=== PATIENT | female | born 1990 | race African-American/Black ===

== ENCOUNTER 2020-05-04 19:05 | Outpatient (CLI) | payer MEDICAID ==
[~2020-05-04] VITALS: Ht 175.3 cm; Wt 58.0 kg
[~2020-05-04 19:05] MED LIST: ACHYD1T PO; AMOX400S52; CIPR500T78 PO; DCS100C PO; DEPO PROVERA; HYDR-757 PO; HYDR118S; IBP800T PO; NITR-65 PO; PHEN200T27 PO; PRD20T PO; PREN-115 PO; RT-ALBUINH IH
--- NOTE | 2020-05-04 19:15 | NUR ---
SHIRA LUNDBERG presented to unit via ambulation from ED, accompanied by self , with c/o ABD PAIN FROM INJURY. SHIRA LUNDBERG weighed, gowned, voided, and to bed. EFHM and TOCO applied, VS taken. SHIRA LUNDBERG oriented to bed controls, call light, TV, heat, and A/C controls.
[2020-05-04 19:43] VITALS: BP 102/58
[2020-05-04 19:47] VITALS: BP 102/58
[2020-05-04 19:48] VITALS: BP 102/58
[2020-05-04 20:01] VITALS: BP 102/58
--- NOTE | 2020-05-04 20:03 | NUR ---
Pt discharged and educated on discharge instructions. No concerns at this time. Pt ambulated to private vehicle.
--- NOTE | 2020-05-07 08:20 | Physician Query-Final Dx ---
YINKA FITCH 05/07/20 0820: Clinic Account Progress/Dx Physician Query: Please give diagnosis Please include # weeks gestation Date of Service May 04, 2020 at 19:05 RAUL LEE MD 05/08/20 1710: Clinic Account Progress/Dx DIAGNOSIS: Diagnosis 25 weeks with false labor YINKA FITCH May 07, 2020 08:20 RAUL LEE MD May 08, 2020 17:10
== END 2020-05-04 20:01 | disposition home or self-care (01) ==
LOC: LDRP 19:05 → WSo 19:05
PROVIDERS: ATTEND Obstetrics & Gynecology
DX: Z34.92 Encounter for supervision of normal pregnancy, unspecified, second trimester (principal); Z3A.25 25 weeks gestation of pregnancy

== ENCOUNTER 2020-07-03 13:13 | Outpatient (CLI) | payer MEDICAID ==
--- NOTE | 2020-07-03 12:55 | NUR ---
SHIRA LUNDBERG presented to unit via W/C from ED, accompanied by AUNT, with c/o LEAKING FLUID. SHIRA LUNDBERG weighed, gowned, voided, and to bed. EFHM and TOCO applied, VS taken. SHIRA LUNDBERG oriented to bed controls, call light, TV, heat, and A/C controls.
[2020-07-03 13:20] VITALS: BP 91/54
--- NOTE | 2020-07-03 13:26 | NUR ---
DR. LEE NOTIFIED OF PT'S ARRIVAL, C/O, GESTATION, , AMNIO NEG, SVE, REVIEW OF STRIP, URINE PENDING. ORDERS RECEIVED TO GIVE REASSURANCE AND DISCHARGE HOME.
[2020-07-03] MEDS ORDERED: PREN-37 PO (13:29)
[2020-07-03] MEDS ORDERED: DIPH25CA79 PO (13:30)
--- NOTE | 2020-07-03 13:31 | NUR ---
REFER TO LABOR FLOW SHEET.
--- NOTE | 2020-07-03 13:35 | NUR ---
DISCHARGE PAPERS PROVIDED AND REVIEWED WITH PT AND PT'S AUNT. PT VERBALIZES UNDERSTANDING AND DENIES ANY QUESTIONS AT THIS TIME. PAPER SIGNED.
--- NOTE | 2020-07-03 13:39 | NUR ---
PT DISCHARGED FROM -[facility] TO PERSONAL AUTO VIA AMBULATORY IN STABLE CONDITION ACC BY PT'S AUNT.
[2020-07-03 13:56] LABS: BILIRUBIN,URINE NEGATIVE (NEGATIVE); CLARITY,URINE CLEAR; COLOR,URINE YELLOW; GLUCOSE, URINE (UA) NEGATIVE (NEGATIVE); KETONES,URINE NEGATIVE (NEGATIVE); LEUKOCYTE ESTERASE ,URINE NEGATIVE (NEGATIVE); NITRITE,URINE NEGATIVE (NEGATIVE); PROTEIN,URINE NEGATIVE (NEGATIVE)
[2020-07-03 14:03] LABS: BACTERIA,URINE FEW /HPF; WBC,URINE 0-2 /HPF
[2020-07-03 14:04] LABS: AMORPHOUS SEDIMENT,UR LARGE AMOR URATES /LPF
== END 2020-07-03 13:39 | disposition home or self-care (01) ==
LOC: WSo 13:13 → LDRP 13:16 → WSo 13:39
PROVIDERS: ATTEND Obstetrics & Gynecology
DX: Z34.90 Encounter for supervision of normal pregnancy, unspecified, unspecified trimester (principal); Z3A.00 Weeks of gestation of pregnancy not specified
CPT/HCPCS: 81000; 99213

== ENCOUNTER 2020-07-11 14:24 | Outpatient (CLI) | payer MEDICAID ==
[~2020-07-11] VITALS: Ht 172.7 cm; Wt 59.7 kg
[~2020-07-11 14:24] MED LIST changes: +DIPH25CA79 PO; +PREN-37 PO
--- NOTE | 2020-07-11 14:30 | NUR ---
SHIRA LUNDBERG presented to unit via wheelchair from ED, accompanied by staff , with c/o CRAMPING IN LEGS,PAIN IN ABD. SHIRA LUNDBERG weighed, gowned, voided, and to bed. EFHM and TOCO applied, VS taken. SHIRA LUNDBERG oriented to bed controls, call light, TV, heat, and A/C controls.
[2020-07-11 14:52] VITALS: BP 101/58
[2020-07-11 14:57] VITALS: BP 101/58
[2020-07-11 15:03] VITALS: BP 101/58
[2020-07-11] MEDS ORDERED: ACET-2267 PO (15:06)
[2020-07-11] MEDS ORDERED: D5 LR IV SOLUTION 1,000 ML IV ONE ×2 (15:48→16:45)
[2020-07-11 16:53] LABS: BASOPHILS % (AUTO) 0 % (0-10); EOSINOPHILS # (AUTO) 0.1 10^3/uL (0.0-0.3); EOSINOPHILS % (AUTO) 1 % (0-10); HEMATOCRIT 35 % (35-52); HEMOGLOBIN 11.7 G/DL (11.5-16.0); LYMPHOCYTES # (AUTO) 2.3 X 10^3 (1.0-4.0); LYMPHOCYTES % (AUTO) 17 % (12-44); MEAN CORPUSCULAR HEMOGLOBIN 27 PG (25-34); MEAN CORPUSCULAR HGB CONC 33 G/DL (32-36); MEAN CORPUSCULAR VOLUME 81 FL (80-99); MONOCYTES # (AUTO) 1.5 X 10^3 (0.0-1.0); MONOCYTES % (AUTO) 11 % (0-12); NEUTROPHILS # (AUTO) 9.8 X 10^3 (1.8-7.8); NEUTROPHILS % (AUTO) 71 % (42-75); PLATELET COUNT 179 10^3/uL (130-400); WHITE BLOOD COUNT 13.7 10^3/uL (4.3-11.0)
[2020-07-11 17:03] LABS: ALBUMIN 3.6 GM/DL (3.2-4.5); CHLORIDE 102 MMOL/L (98-107); POTASSIUM 4.3 MMOL/L (3.6-5.0); SODIUM 134 MMOL/L (135-145)
[2020-07-11 17:04] LABS: CALCIUM 9.4 MG/DL (8.5-10.1)
[2020-07-11 17:05] LABS: GLUCOSE 77 MG/DL (70-105); TOTAL PROTEIN 7.1 GM/DL (6.4-8.2)
[2020-07-11 17:07] LABS: BILIRUBIN,TOTAL 0.5 MG/DL (0.1-1.0); CARBON DIOXIDE 22 MMOL/L (21-32)
[2020-07-11 17:09] LABS: ALKALINE PHOSPHATASE 134 U/L (40-136); CREATININE SERUM 0.74 MG/DL (0.60-1.30); GFR ESTIMATED > 60
[2020-07-11 17:10] LABS: BUN/CREATININE RATIO 5
[2020-07-11 17:12] LABS: ALANINE AMINOTRANSFERASE 18 U/L (0-55)
[2020-07-11 17:18] VITALS: BP 107/60
[2020-07-11] MEDS ORDERED: NUTR113P PO (18:51)
--- NOTE | 2020-07-11 19:30 | NUR ---
PT GIVEN DISCHARGE INSTRUCTIONS. PT DENIES QUESTIONS AND VERBALIZES UNDERSTANDING. PT DISCHARGED TO HOME, AMBULATES TO PRIVATE VEHICLE WITH BELONGINGS IN HAND.
--- NOTE | 2020-07-12 08:10 | Physician Query-Final Dx ---
YINKA FITCH 07/12/20 0809: Clinic Account Progress/Dx Physician Query: Please give diagnosis Please include # week gestation Date of Service Jul 11, 2020 at 14:24 RAUL LEE MD 07/12/20 0918: Clinic Account Progress/Dx DIAGNOSIS: Diagnosis 32 weeks with false labor YINKA FITCH Jul 12, 2020 08:09 RAUL LEE MD Jul 12, 2020 09:18
== END 2020-07-11 19:30 ==
LOC: WSo 14:24 → LDRP 14:25 → WSo 19:30
PROVIDERS: ATTEND Obstetrics & Gynecology
DX: O47.03 False labor before 37 completed weeks of gestation, third trimester (principal); Z3A.32 32 weeks gestation of pregnancy
CPT/HCPCS: 80053; 85025; 96360; 96361; G0463; 36415; 99214

== ENCOUNTER 2020-08-15 05:31 | Outpatient (RCR) | payer MEDICAID ==
[~2020-08-15] VITALS: Ht 172 cm; Wt 60.0 kg
[~2020-08-15 05:31] MED LIST changes: +ACET-2267 PO; +NUTR113P PO
--- NOTE | 2020-08-15 08:08 | History & Physical ---
History and Physical Date Seen by Provider: Aug 17, 2020 Time Seen by Provider: 11:25 patient is a 30-year-old gravid female currently at 38+ weeks gestation. Patient is admitted now for repeat delivery. Her complicated by her aneuploidy XXX. GBS culture was negative Allergies are to penicillin Medications are vitamins Medical social and surgical histories are per the antepartum record HEENT exam is normal Neck is supple no lymphadenopathy no thyromegaly Abdomen gravid soft nontender nondistended Extremities show no clubbing cyanosis. There is no Homans sign. Pelvic exam is deferred Assessment and plan term at 38 weeks gestation admitted for repeat delivery aneuploidy triplex at 38 weeks gestation admitted for repeat Allergies and Home Medications Allergies Coded Allergies: Penicillins (Unverified Allergy, Severe, ANAPHYLAXIS, 08/14/20) Home Medications Albuterol Sulfate 1 Puff Puff, 2 PUFF IH Q4H PRN for SHORTNESS OF BREATH 1 PUFF = 90 MCG Prescribed by: ERICK SILVA on 03/04/18 1408 Docusate Sodium 100 Mg Capsule, 100 MG PO BID Prescribed by: RAUL DANIELS on 08/18/20 1043 Ibuprofen 800 Mg Tablet, 800 MG PO Q6HR Prescribed by: RAUL DANIELS on 08/18/20 1043 Oxycodone HCl/Acetaminophen 1 Each Tablet, 1 TAB PO Q4HR PRN for PAIN-MODERATE (5-7) Prescribed by: RAUL DANIELS on 08/18/20 1043 Vit/Iron Fumarate/FA 1 Each Tablet, 1 EACH PO DAILY, (Reported) Patient Home Medication List Home Medication List Reviewed: Yes RAUL LEE MD Aug 15, 2020 08:08
[2020-08-18] MEDS ORDERED: OXYC1TAB12 PO (10:43)
[2020-08-18] MEDS ORDERED: DCS100C PO (10:43)
[2020-08-18] MEDS ORDERED: IBUP-1780 PO (10:43)
== END 2020-08-15 10:39 | disposition home or self-care (01) ==
LOC: PREOP 05:31
PROVIDERS: ATTEND Obstetrics & Gynecology
DX: Z01.812 Encounter for preprocedural laboratory examination (principal); Z20.828 Contact with and (suspected) exposure to other viral communicable diseases
CPT/HCPCS: 87635

== ENCOUNTER 2020-08-17 07:30 | Inpatient (IN) | payer MEDICAID ==
[2020-08-17] VITALS (9 sets, daily range): BP systolic 104–135; BP diastolic 60–86
[~2020-08-17] VITALS: Ht 172.7 cm; Wt 60.5 kg
[2020-08-17] MEDS ORDERED: CLINDAMYCIN 900 MG/50 ML IVPB 50 ML IV ONE (11:00)
[2020-08-17] MEDS ORDERED: D5 LR IV SOLUTION 1,000 ML IV SCH ×2 (11:00→13:47)
--- NOTE | 2020-08-17 11:00 | NUR ---
SHRIA LUNDBERG presented to unit via ambulation from ED, accompanied by mother,for repeat c/s. Pt.weighed, gowned, voided, and to bed. EFHM and TOCO applied, VS taken. Pt. oriented to bed controls, call light, TV, heat, and A/C controls.
[2020-08-17] MEDS ORDERED: FAMOTIDINE 20MG/2ML IV (PEPCID) IV ONE (11:15)
[2020-08-17] MEDS ORDERED: CITRIC ACID/SOB CIT (BICITRA) 30 ML UDC PO ONE (11:15)
[2020-08-17] MEDS ORDERED: METOCLOPRAMIDE INJ 10 MG/2 ML (REGLAN) IV ONE (11:15)
--- NOTE | 2020-08-17 11:15 | NUR ---
admission paperwork completed.
--- NOTE | 2020-08-17 11:51 | NUR ---
c/s consent signed and placed on chart.
--- NOTE | 2020-08-17 12:00 | NUR ---
#20g IV to Rt.FA x2 attempts by this RN. site patent, secured with opsite. admission labs collected prior to IVF's infusing. pt tolerated well.
[2020-08-17 12:17] LABS: BASOPHILS % (AUTO) 0 % (0-10); EOSINOPHILS # (AUTO) 0.2 10^3/uL (0.0-0.3); EOSINOPHILS % (AUTO) 1 % (0-10); HEMATOCRIT 33 % (35-52); HEMOGLOBIN 10.4 g/dL (11.5-16.0); LYMPHOCYTES # (AUTO) 2.5 10^3/uL (1.0-4.0); LYMPHOCYTES % (AUTO) 17 % (12-44); MEAN CORPUSCULAR HEMOGLOBIN 26 pg (25-34); MEAN CORPUSCULAR HGB CONC 32 g/dL (32-36); MEAN CORPUSCULAR VOLUME 81 fL (80-99); MEAN PLATELET VOLUME 13.9 fL (9.0-12.2); MONOCYTES # (AUTO) 1.5 10^3/uL (0.0-1.0); MONOCYTES % (AUTO) 10 % (0-12); NEUTROPHILS # (AUTO) 10.8 10^3/uL (1.8-7.8); NEUTROPHILS % (AUTO) 71 % (42-75); PLATELET COUNT 182 10^3/uL (130-400); WHITE BLOOD COUNT 15.2 10^3/uL (4.3-11.0)
--- NOTE | 2020-08-17 12:35 | NUR ---
@ bedside. POC reviewed with pt and Aunt.
[2020-08-17] MEDS: LACTATED RINGERS 1,000 ML IV PRN ×2 (12:37→13:50)
[2020-08-17] MEDS ORDERED: KETOROLAC 30 MG/ML VIAL ONE (12:48)
[2020-08-17] MEDS ORDERED: fentaNYL INJECTION 100 MCG/2 ML AMP ONE (12:48)
[2020-08-17] MEDS ORDERED: OXYTOCIN PRE-MIX DRIP 500 ML IV ONE (12:50)
[2020-08-17] MEDS ORDERED: BUPIVACAINE 0.5% 30 ML (SENSORCAINE) VIAL ONE ×2 (12:50→13:57)
--- NOTE | 2020-08-17 13:01 | NUR ---
monitors dc'd. pt ambulated to OB c/s room with OR staff @ side. pt stable with no sx's of distress noted.
[2020-08-17] MEDS ORDERED: KETAMINE/NaCl 50 MG/5 ML SYRINGE (ED ONLY) ONE (13:34)
[2020-08-17] MEDS ORDERED: MIDAZOLAM 10 MG/2 ML (VERSED) VIAL ONE (13:34)
[2020-08-17] MEDS ORDERED: TETANUS,DIPTH,PERTUSS P/F (BOOSTRIX) 0.5 ML VIAL IM ONE (14:00)
[2020-08-17] MEDS ORDERED: MEASLES,MUMPS,RUBELLA 1 EA INJ SC ONE (14:00)
[2020-08-17] MEDS ORDERED: ONDANSETRON 4 MG/2 ML (SDV) Z0FRAN IVP PRN (14:00)
[2020-08-17] MEDS ORDERED: FLU QUADRIvalent (3YOA+) 60 mcg/0.5 ml 2020-21 (AFLURIA) IM ONE (14:00)
--- NOTE | 2020-08-17 15:15 | NUR ---
Pt transferred to room 313 via bed with this RN, Aunt and infant @ side. pt stable with no sx's of distress noted. familiarized with room supplies. call light within reach.
[2020-08-17] MEDS: OXYTOCIN PRE-MIX DRIP 500 ML IV SCH (15:26)
--- NOTE | 2020-08-17 16:31 | NUR ---
report given to ALEX Maciel
--- NOTE | 2020-08-17 19:00 | NUR ---
Report received at this time that pt up on bedpan and will call out when finished.
--- NOTE | 2020-08-17 19:00 | NUR ---
Pt feels like she needs to void. Pt is unable to lift either leg off the bed at this time. ALEX knutson feel comfortable attempting to get pt out of bed without pt being able to at least lift each leg off of the bed. Pt is placed on bedpan to void at this time.
--- NOTE | 2020-08-17 19:07 | NUR ---
report given to trista guy at this time
--- NOTE | 2020-08-17 19:20 | NUR ---
Pt requesting off bedpan. urvashi, rn in room and pt off bedpan. was unable to void at this time. this rn to room to assess pt. Pt reports that she feels like she needs to void, but can't. Pt requesting to get up to stool, but legs still slightly numb. Instructed pt that will wait 1 more hour, and then get up to stool. if still unable to void, will straight cath.
[2020-08-17] MEDS: KETOROLAC 30 MG/ML VIAL IVP SCH (19:47)
--- NOTE | 2020-08-17 20:30 | NUR ---
Pt up to br. Walks well on legs. States feels bladder full. Red cord given to pt, aunt in room with pt. Will return to check soon. 2044 Pt still unable to void. Given jean claude bottle to squirt cold water on perineum. ice pack to perineum. Pt unable to void. Pt back to bed. 2099 sterile Straight cath done at this time. Pt unable to feel procedure. 900ml clear yellow urine returned. Pt states feels much better. Warm blanket given, water refilled, crackers given. Informed pt would try void again at next vs check.
[2020-08-17] MEDS: DOCUSATE SODIUM 100 MG (COLACE) CAP PO SCH (20:41)
[2020-08-17] MEDS ORDERED: DOCUSATE SODIUM 100 MG (COLACE) CAP PO SCH (21:00)
--- NOTE | 2020-08-17 21:39 | OPERATIVE REPORT ---
DATE OF SERVICE: 08/17/2020 PREOPERATIVE DIAGNOSIS: Term at 38 weeks gestation in a patient with previous and with triple X syndrome. POSTOPERATIVE DIAGNOSIS: Term at 38 weeks gestation in a patient with previous and with triple X syndrome. OPERATIVE PROCEDURE: Repeat low transverse delivery of a viable female with Apgars of 5 and 9 at 1 and 5 minutes respectively, weight 7 pounds 6 ounces. Cord blood pH of 7.31 and a time of 1336. OPERATIVE DESCRIPTION: With the patient in the supine position under satisfactory spinal analgesia, she was prepped and draped in the usual fashion for abdominal surgery. Galloway catheter was placed in the urinary bladder and left to dependent drainage. A Pfannenstiel incision was made through the skin with a scalpel at the site of the patient's previous incision. A hypertrophic scar was removed in the process and then the abdomen was entered in the usual manner. In entering the peritoneal cavity, amniotic fluid was immediately released. It appeared that there was a uterine window occupying the lower uterine segment and that window was adherent to the peritoneum. Again on opening the peritoneum, amniotic fluid was released and spilled. The abdominal peritoneal incision was extended vertically as far as was felt safe with the circumstance with the uterus open and now umbilical cord protruding from the hysterotomy incision. The incision was extended bluntly and then Rosales forceps were applied to facilitate the delivery of the infant. The was bulb suctioned on delivery of the head and again on completion of delivery. Umbilical cord was doubly clamped and cut and the passed to the pediatric nurse in attendance for delivery. Cord bloods were obtained. The placenta delivered spontaneously Lynch. It was somewhat hypertrophic and granular appearing placenta. It was sent to pathology for permanent section. The abdominal cavity was explored. The omentum was fairly densely adherent to the anterior surface of the uterus and extending down over the lower uterine segment at the site of the hysterotomy incision, more so on the right than on the left. The uterine fundus was delivered onto the abdominal cavity by retracting these adhesions to the right lateral. These adhesions were then taken down allowing the omentum to be returned to abdominal cavity. There was extensive peritoneal thickening and edema in the area of the anterior lower uterine segment that was eventually exposed by retracting this peritoneum and retracting the bladder down off the lower uterine segment. The uterine incision was completely hemostatic. I think technically there was never an incision in the uterus. This had just either as a result of opening the abdominal cavity or prior to that. The uterine incision was now closed with a running locked suture of 2-0 Vicryl, taking care to reapproximate the myometrium. With the uterine incision closed, the lower uterine segment appearing normal, the bladder intact. The pelvis was examined and cleaned of blood clot and debris. Then, the uterus was returned to the abdominal cavity. Sponge and needle counts were correct, hemostasis was assured. The anterior parietal peritoneum was closed with running suture of 2-0 Vicryl. The rectus muscles were closed with that suture as well. The rectus fascia was closed with 2-0 Vicryl, subcutaneous tissue was closed with 2-0 Vicryl in two layers and then the skin was stapled. Sponge and needle counts were correct on completion of this procedure. Estimated blood loss was around 400 mL. The patient tolerated the procedure well. Although she did have some significant discomfort on peritoneal manipulation, she was given ketamine to . The patient tolerated the procedure well from that point. The patient was transferred to the recovery room in stable condition. The infant had been taken stable to the full-term nursery under the care of the pediatric nurse. Job ID: [id number] DocumentID: [id number] Dictated Date: 08/17/2020 14:12:17 Rheumatologist Date: 08/17/2020 21:37:52 Dictated By: RAUL LEE MD
--- NOTE | 2020-08-17 21:45 | NUR ---
Pt sent to [facility] for noc. aunt leaving and will be unable to return due to covid visitor restrictions. Pt is going to try to rest.
[2020-08-18] MEDS: OXYTOCIN PRE-MIX DRIP 500 ML IV SCH (00:56)
[2020-08-18] MEDS: KETOROLAC 30 MG/ML VIAL IVP SCH (01:42)
[2020-08-18 01:45] VITALS: BP 108/64
--- NOTE | 2020-08-18 01:45 | NUR ---
Pt requesting up to void at this time. Walks to br with standby assist. Able to void easily. 1000ml void. States feels much better. Will monitor.
[2020-08-18 05:10] VITALS: BP 107/64
--- NOTE | 2020-08-18 05:10 | NUR ---
VSS, dsg off, iv removed, pt up to void at this time with no assist. requesting from nsy. Infant to room. Pt states passing flatus, denies c/o at this time.
[2020-08-18] MEDS: oxyCODONE/APAP 10/325MG (PERCOCET 10) TABLET PO PRN ×2 (06:57→16:31)
[2020-08-18] MEDS ORDERED: IBUPROFEN 800 MG (MOTRIN) TAB PO ONE (09:37)
[2020-08-18] MEDS: DOCUSATE SODIUM 100 MG (COLACE) CAP PO SCH ×2 (09:40→22:55)
[2020-08-18] MEDS: IBUPROFEN 800 MG (MOTRIN) TAB PO SCH ×3 (09:41→22:55)
[2020-08-18 09:46] VITALS: BP 90/52
--- NOTE | 2020-08-18 09:46 | NUR ---
AM shift assessment completed and vital signs obtained, see interventions. Plan of care reviewed with patient. Patient verbalizes understanding and questions answered. Scheduled Motrin and Colace PO given. TDAP vaccine administered, see EMAR. VIS provided to patient. Shower supplies provided. Patient denies any current needs or concerns at this time.
--- NOTE | 2020-08-18 10:30 | NUR ---
Dr. Haley here to see patient.
--- NOTE | 2020-08-18 10:42 | Progress Note ---
Standard Progress Note Progress Notes/Assess & Plan Date Seen by a Provider: Aug 18, 2020 Time Seen by a Provider: 10:41 Progress/Assessment & Plan this patient is without complaint. She is ambulating, voiding, tolerating oral intake well has good pain control. Vital Signs Date Time Temp Pulse Resp B/P (MAP) Pulse Ox O2 Delivery O2 Flow Rate FiO2 08/18/20 09:46 36.2 71 16 90/52 (65) 100 Room Air 08/18/20 06:55 36.0 08/18/20 05:10 36.6 75 18 107/64 (78) 99 Room Air 08/18/20 01:45 36.4 78 18 108/64 (79) 99 Room Air 08/17/20 19:40 36.4 67 18 123/71 (88) 100 Room Air 08/17/20 15:00 35.9 59 18 135/86 (102) 98 Room Air 08/17/20 15:00 35.9 16 135/86 (102) 99 Room Air 08/17/20 15:00 Room Air 08/17/20 14:45 35.8 16 127/81 (96) 99 Room Air 08/17/20 14:45 Room Air 08/17/20 14:30 35.9 16 116/67 (83) 99 Room Air 08/17/20 14:30 Room Air 08/17/20 14:13 36.2 16 116/66 (83) 99 Room Air 08/17/20 14:13 Room Air 08/17/20 13:00 85 18 104/69 (81) Room Air 08/17/20 12:45 88 18 104/67 (79) Room Air 08/17/20 12:00 36.6 84 18 98 Room Air 08/17/20 11:07 36.6 84 18 107/60 (76) 98 Room Air I & O 08/18/20 07:00 Intake Total 4520 ml Output Total 2800 ml Balance 1720 ml vital signs are stable. Patient is afebrile. Fundus is firm below the umbilicus and nontender. The surgical incision is clean dry and intact. Extremities show no clubbing or cyanosis. There is no Homans sign. Assessment and plan postoperative day number 1 status post repeat delivery at 38 weeks gestation. Patient is doing well will have routine convalescence care RAUL LEE MD Aug 18, 2020 10:42
[2020-08-18] MEDS ORDERED: OXYC1TAB12 PO (10:43)
[2020-08-18] MEDS ORDERED: IBUP-1780 PO (10:43)
[2020-08-18] MEDS ORDERED: DCS100C PO (10:43)
--- NOTE | 2020-08-18 10:43 | Discharge Inst-Surgical ---
Discharge Inst-Surgical Depart Medication/Instructions New, Converted or Re-Newed RX: RX on Chart Consults/Follow Up Patient Instructions: as directed Orders & Referrals Follow Up Appt: RTC 1 week for incision check. Call to make follow up appt. for patient in 4 weeks. Wound Care: Remove evelia, apply benzoin and steri strips. Activity Per routine post instructions. Please call in RX to patient pharmacy. Diet as tolerated Patient may shower or tub bathe as desired. Continue home meds Activity Activity as Tolerated: No Diet Discharge Diet: No Restrictions RAUL LEE MD Aug 18, 2020 10:43
--- NOTE | 2020-08-18 14:59 | Anesthesia-Regional Post-Op ---
Regional Patient Condition Mental Status: Alert, Oriented x3 Circulation: Same as Pre-Op Headache: Absent Sensation: Full Recovery Motor Block: Absent Post Op Complications Complications None Follow Up Care/Instructions Patient Instructions None needed. Anesthesia/Patient Condition Patient is doing well, no complaints, stable vital signs, no apparent adverse anesthesia problems. No complications reported per nursing. LEELEE WILL CRNA Aug 18, 2020 14:59
[2020-08-18 15:28] VITALS: BP 95/52
[2020-08-18 22:53] VITALS: BP 99/57
[2020-08-19] MEDS: IBUPROFEN 800 MG (MOTRIN) TAB PO SCH ×2 (04:34→09:11)
[2020-08-19 05:02] VITALS: BP 102/60
[2020-08-19 08:54] VITALS: BP 105/59
--- NOTE | 2020-08-19 08:54 | NUR ---
AM shift assessment completed and vital signs obtained, see interventions. Plan of care reviewed with patient. Patient verbalizes understanding and denies any current questions or concerns. Scheduled Motrin and Colace PO given. Percocet 1 PO given for patient's c/o pain rated 6/10. Patient denies any further questions or concerns at this time.
--- NOTE | 2020-08-19 09:00 | NUR ---
[place] removed at this time. [place] zoin and steri-strips applied to incision. Reviewed incision care with patient. Patient verbalizes understanding and denies any current questions or concerns at this time.
[2020-08-19] MEDS: oxyCODONE/APAP 10/325MG (PERCOCET 10) TABLET PO PRN (09:11)
[2020-08-19] MEDS: DOCUSATE SODIUM 100 MG (COLACE) CAP PO SCH (09:11)
--- NOTE | 2020-08-19 09:50 | NUR ---
Dr. Haley here to see patient. New orders received.
--- NOTE | 2020-08-19 09:59 | Progress Note ---
Standard Progress Note Progress Notes/Assess & Plan Date Seen by a Provider: Aug 19, 2020 Time Seen by a Provider: 09:58 Progress/Assessment & Plan this patient is without complaint. She is ambulating, voiding, tolerating oral intake well has good pain control. Vital Signs Date Time Temp Pulse Resp B/P (MAP) Pulse Ox O2 Delivery O2 Flow Rate FiO2 08/18/20 09:46 36.2 71 16 90/52 (65) 100 Room Air 08/18/20 06:55 36.0 08/18/20 05:10 36.6 75 18 107/64 (78) 99 Room Air 08/18/20 01:45 36.4 78 18 108/64 (79) 99 Room Air 08/17/20 19:40 36.4 67 18 123/71 (88) 100 Room Air 08/17/20 15:00 35.9 59 18 135/86 (102) 98 Room Air 08/17/20 15:00 35.9 16 135/86 (102) 99 Room Air 08/17/20 15:00 Room Air 08/17/20 14:45 35.8 16 127/81 (96) 99 Room Air 08/17/20 14:45 Room Air 08/17/20 14:30 35.9 16 116/67 (83) 99 Room Air 08/17/20 14:30 Room Air 08/17/20 14:13 36.2 16 116/66 (83) 99 Room Air 08/17/20 14:13 Room Air 08/17/20 13:00 85 18 104/69 (81) Room Air 08/17/20 12:45 88 18 104/67 (79) Room Air 08/17/20 12:00 36.6 84 18 98 Room Air 08/17/20 11:07 36.6 84 18 107/60 (76) 98 Room Air I & O 08/18/20 07:00 Intake Total 4520 ml Output Total 2800 ml Balance 1720 ml vital signs are stable. Patient is afebrile. Fundus is firm below the umbilicus and nontender. The surgical incision is clean dry and intact. Extremities show no clubbing or cyanosis. There is no Homans sign. Assessment and plan postoperative day number 1 status post repeat delivery at 38 weeks gestation. Patient is doing well will have routine convalescence care August 19, 2020 Patient is without complaint. She is ambulating, voiding, tolerating oral intake well has good pain control. Patient is requesting discharge home. Vital Signs Date Time Temp Pulse Resp B/P (MAP) Pulse Ox O2 Delivery O2 Flow Rate FiO2 08/19/20 08:54 36.3 69 16 105/59 (74) 100 Room Air 08/19/20 05:02 36.8 59 20 102/60 (74) 100 Room Air 08/18/20 22:53 37.3 64 20 99/57 (71) 100 Room Air 08/18/20 15:28 36.2 76 16 95/52 (66) 98 Room Air I & O 08/19/20 06:59 Intake Total 500 ml Output Total 2400 ml Balance -1900 ml vital signs are stable. Patient is afebrile. Fundus is firm below the umbilicus and nontender. The surgical incision is clean dry and intact. Extremities show no clubbing or cyanosis. There is no Homans sign. Assessment and plan postoperative day number 2 status post repeat delivery doing well. Plan is for discharge home with follow-up in clinic Final Diagnosis 38 week repeat delivery RAUL LEE MD Aug 19, 2020 09:59
--- NOTE | 2020-08-19 11:32 | NUR ---
Discharge instructions and medications reviewed with patient both written and verbally. Patient verbalizes understanding and questions answered. Written prescription given to patient.
--- NOTE | 2020-08-19 14:30 | NUR ---
Patient discharged at this time via wheelchair and accompanied down to awaiting private vehicle by this RN. No signs or symptoms of distress noted.
== END 2020-08-19 14:30 | disposition home or self-care (01) | DRG 788 ==
LOC: LDRP 10:41
PROVIDERS: ADMIT Obstetrics & Gynecology; ATTEND Obstetrics & Gynecology
PROC: 10D00Z1 Extraction of Products of Conception, Low, Open Approach (ICD-10-PCS; principal; 2020-08-17 13:23)
DX: O34.211 Maternal care for low transverse scar from previous cesarean delivery (principal); Z3A.38 38 weeks gestation of pregnancy; Z37.0 Single live birth; O43.193 Other malformation of placenta, third trimester
CPT/HCPCS: 36415; 85025; 86850; 86900; 86901; 90715; 94664

== ENCOUNTER 2021-03-09 15:17 | Emergency (ER) | payer MEDICAID ==
[~2021-03-09] VITALS: Ht 175 cm; Wt 52.0 kg
[~2021-03-09 15:17] MED LIST changes: +IBUP-1780 PO; +OXYC1TAB12 PO
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
--- NOTE | 2021-03-09 17:30 | Diagnostic Imaging Report ---
INDICATION: pain TECHNIQUE: 2 views of the right forearm. CORRELATION STUDY: None FINDINGS: The radius and ulna have an unremarkable appearance. The visualized portions of the elbow and wrist are unremarkable. Soft tissues are unremarkable. IMPRESSION: 1. Negative for acute bony abnormality of the forearm. Dictated by: Dictated on workstation # [id number]
[2021-03-09 17:31] VITALS: BP 108/73
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
== END 2021-03-09 17:31 | disposition home or self-care (01) ==
LOC: EDUNIT# 15:17 → ER 15:19
DX: O9A.211 Injury, poisoning and certain other consequences of external causes complicating pregnancy, first trimester (principal); S50.11XA Contusion of right forearm, initial encounter; O99.511 Diseases of the respiratory system complicating pregnancy, first trimester; J45.909 Unspecified asthma, uncomplicated; Z87.891 Personal history of nicotine dependence; Z88.0 Allergy status to penicillin; Z79.899 Other long term (current) drug therapy; Z3A.11 11 weeks gestation of pregnancy; V49.40XA Driver injured in collision with unspecified motor vehicles in traffic accident, initial encounter
CPT/HCPCS: 73090; 76801; 76802

== ENCOUNTER 2021-06-28 16:41 | Outpatient (CLI) | payer MEDICAID ==
[~2021-06-28] VITALS: Ht 175.3 cm; Wt 62.1 kg
[2021-06-28 17:00] VITALS: BP 108/60
[2021-06-28 17:06] LABS: BILIRUBIN,URINE NEGATIVE (NEGATIVE); CLARITY,URINE CLEAR; COLOR,URINE YELLOW; GLUCOSE, URINE (UA) NEGATIVE (NEGATIVE); KETONES,URINE NEGATIVE (NEGATIVE); LEUKOCYTE ESTERASE ,URINE 1+ (NEGATIVE); NITRITE,URINE NEGATIVE (NEGATIVE); PH,URINE 7.5 (5-9); PROTEIN,URINE NEGATIVE (NEGATIVE)
[2021-06-28 17:13] LABS: BACTERIA,URINE TRACE /HPF
[2021-06-28] MEDS ORDERED: NS IV 1000 ML 1,000 ML ONE (17:42)
[2021-06-28] MEDS ORDERED: BETAMETHASONE ACE/NA PHOS 6 MG/ML (CELESTONE SOLUSPAN) ONE (17:42)
[2021-06-28] MEDS ORDERED: NS IV 1000 ML 1,000 ML IV SCH (17:45)
[2021-06-28] MEDS: BETAMETHASONE ACE/NA PHOS 6 MG/ML (CELESTONE SOLUSPAN) IM SCH (18:03)
[2021-06-28] MEDS ORDERED: ONDA4TAB11 PO (18:13)
[2021-06-28] MEDS ORDERED: ASPI-999 PO (18:13)
[2021-06-28] MEDS ORDERED: FERR-84 PO (18:13)
[2021-06-28] MEDS ORDERED: TERBUTALINE INJ 1 MG/ML (BRETHINE) AMP ONE (18:56)
[2021-06-28] MEDS ORDERED: TERBUTALINE INJ 1 MG/ML (BRETHINE) AMP SC ONE (19:00)
[2021-06-28] MEDS: D5 LR IV SOLUTION 1,000 ML IV SCH (19:00)
[2021-06-28] MEDS ORDERED: ACETAMINOPHEN 500 MG TAB (TYLENOL) ONE (22:47)
[2021-06-28] MEDS ORDERED: ACETAMINOPHEN 500 MG TAB (TYLENOL) PO ONE (22:49)
[2021-06-29] VITALS: BP 111/64
[2021-06-29] MEDS: D5 LR IV SOLUTION 1,000 ML IV SCH (02:26)
[2021-06-29] MEDS: BETAMETHASONE ACE/NA PHOS 6 MG/ML (CELESTONE SOLUSPAN) IM SCH (08:02)
--- NOTE | 2021-06-29 09:37 | Physician Query-Final Dx ---
Clinic Account Progress/Dx Physician Query: Date of Service Jun 28, 2021 at 16:41 DIAGNOSIS: Diagnosis 27 week gestation triplets rule out labor contractions diarrhea/ dehydration JAJA JEFFRIES DO Jun 29, 2021 09:37
== END 2021-06-29 09:15 | disposition home or self-care (01) ==
LOC: WSo 16:41 → LDRP 16:43 → WSo 06-29 09:15
PROVIDERS: ATTEND Obstetrics & Gynecology
DX: O30.102 Triplet pregnancy, unspecified number of placenta and unspecified number of amniotic sacs, second trimester (principal); Z3A.27 27 weeks gestation of pregnancy
CPT/HCPCS: 81000; 96361; 96372

== ENCOUNTER 2022-02-04 22:31 | Emergency (ER) | payer MEDICAID ==
[~2022-02-04] VITALS: Ht 175 cm; Wt 64.0 kg
[~2022-02-04 22:31] MED LIST changes: +ASPI-999 PO; +DOCU-239 PO; +FERR-84 PO; +ONDA4TAB11 PO
[2022-02-04] MEDS ORDERED: TETANUS,DIPTH,PERTUSS P/F (BOOSTRIX) 0.5 ML VIAL IM ONE (23:30)
[2022-02-04] MEDS ORDERED: TRIM/SULFAMETH 160/800 (SEPTRA DS) TAB PO ONE (23:30)
[2022-02-04] MEDS ORDERED: SULF1TAB38 PO (23:37)
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
[2022-02-04 23:56] VITALS: BP 116/98
== END 2022-02-04 23:49 | disposition home or self-care (01) ==
LOC: EDUNIT# 22:31 → ER 22:34
DX: M79.5 Residual foreign body in soft tissue (principal); Z23 Encounter for immunization
CPT/HCPCS: 90715; 99284

== ENCOUNTER → 2023-04-13 | Outpatient (CLI) | payer MEDICAID ==
[~2023-04-13] VITALS: Ht 177.8 cm; Wt 75.0 kg
[~2023-04-13] MED LIST changes: +ALBU8.5H6 IH; +GADOTERATE 0.5 MMOL/ML (CLARISCAN) 15 ML VIAL IV ONE; +IOHEXOL 300 MG/ML 50 ML (OMNIPAQUE 300) VIAL IV ONE; +LIDOCAINE 1% INJ 10 ML VIAL INJ ONE; +LIDOCAINE 1% INJ 10 ML VIAL ONE; -RT-ALBUINH IH; +SULF1TAB38 PO
--- NOTE | 2023-04-13 16:31 | Diagnostic Imaging Report ---
INDICATION: Right shoulder injury. Patient was brought to the procedure room placed on table in the supine position. Right shoulder was prepped and draped in usual sterile fashion. Small amount 1% lidocaine was utilized for local anesthesia. 22-gauge needle was advanced into the right shoulder and placed with its tip at the rotator interval. A 15 mm solution of iodinated contrast, normal saline and gadolinium was injected under fluoroscopic observation. A total of 7 seconds of fluoroscopic time was utilized. Images demonstrate good needle position without contrast within the shoulder capsule. IMPRESSION: Successful right shoulder injection of gadolinium contrast solution, using fluoroscopy. Dictated by: Dictated on workstation # [id number]
--- NOTE | 2023-04-13 17:02 | Diagnostic Imaging Report ---
PROCEDURE: MRI upper extremity any joint with contrast right. TECHNIQUE: Multiplanar, multisequence contrast-enhanced MRI of the right upper extremity was accomplished. INDICATION: Right shoulder pain COMPARISON: None FINDINGS: No acute fracture seen in the right shoulder. Alignment appears normal. The joint is well distended with contrast. The patient declined the Aber view. The supraspinatus tendon is intact. The infraspinatus and teres minor tendons are intact. The subscapularis tendon appears intact. No focal muscular atrophy is seen. The long head of the biceps tendon appears normal in course and signal. There is irregularity of the glenoid labrum superiorly at the biceps anchor, extending to about 10:00 posteriorly. No paralabral cyst is seen. The acromion has a curved undersurface. The coracoclavicular and coracoacromial ligaments are intact. IMPRESSION: 1. Irregularity of the posterior superior right glenoid labrum, concerning for tear. No paralabral cyst. 2. No high-grade partial-thickness or full-thickness rotator cuff tear. Dictated by: Dictated on workstation # [id number]
== END ==
LOC: RAD 13:29
PROVIDERS: ATTEND Nurse Practitioner
DX: S43.431A Superior glenoid labrum lesion of right shoulder, initial encounter (principal)
CPT/HCPCS: 23350; 73040; 73222